=== PATIENT | male | born 1940 | race Caucasian/White ===

== ENCOUNTER 2023-04-20 09:30 | Emergency (ER) | payer OTHER ==
[~2023-04-20] VITALS: Ht 170.2 cm; Wt 70.3 kg
[2023-04-20] MEDS ORDERED: ASA81 MG PO (10:09)
[2023-04-20] MEDS ORDERED: RELAFEN DS1000 MG PO (10:09)
[2023-04-20] MEDS ORDERED: LIPITOR20 MG PO (10:09)
[2023-04-20] MEDS ORDERED: LAMISIL AT12 G1 (10:10)
[2023-04-20] MEDS ORDERED: NEURONTIN600 M1 PO (10:10)
[2023-04-20] MEDS ORDERED: ATORVASTATIN CA10 MG PO (10:10)
[2023-04-20] MEDS ORDERED: TERAZOSIN HCL1 M1 PO (10:11)
[2023-04-20] MEDS ORDERED: AMLODIPINE-BEN1 EAC2 PO (10:12)
[2023-04-20] MEDS ORDERED: OFLOXACIN5 ML (10:12)
== END 2023-04-20 10:27 | disposition home or self-care (01) ==
LOC: ER 09:30
DX: G44.209 Tension-type headache, unspecified, not intractable (principal); I10 Essential (primary) hypertension
CPT/HCPCS: 96372; 99284; J1100